=== PATIENT | male | born 1950 | race African-American/Black ===

== ENCOUNTER 2018-01-07 14:45 | Emergency (ER) | payer OTHER ==
[~2018-01-07] VITALS: Ht 188 cm; Wt 102.5 kg
[2018-01-07] MEDS ORDERED: PANTOPRAZOLE 40 MG/10 ML VIAL IV STA (15:26)
[2018-01-07] MEDS ORDERED: SODIUM CHLORIDE 0.9% 500 ML IVB ONE (15:26)
[2018-01-07] MEDS ORDERED: ONDANSETRON HCL 4 MG/2 ML VIAL IV ONE (15:30)
[2018-01-07] MEDS: MORPHINE SULFATE 8mg/ml INJ SDV IV ONE (15:30)
[2018-01-07 17:00] LABS: Basophils # (auto) 0.1 uL; Basophils % (auto) 0.5 % (0.0-2.0); Eosinophils # (auto) 0 uL; Eosinophils % (auto) 0.2 % (0.0-7.0); Hemoglobin 15.5 g/dL (13.5-17.5); Lymphocytes # (auto) 2.2 uL; Mean Corpuscular Hgb Conc. 33.8 g/dL (32.0-36.0); Mean Corpuscular Volume 91.6 fL (80.0-100.0); Monocytes # (auto) 0.9 uL; Monocytes % (auto) 8.1 % (0.0-12.0); Neutrophils # (auto) 7.4 uL; Neutrophils % (auto) 70.2 % (37.0-80.0); Nucleated Red Blood Cells % 0.1 %; Platelet Count (auto) 273 10^3/uL (140-450); Red Blood Cells 5.02 10^6/uL (4.5-5.90); Red Cell Distribution Width 15.2 % (11.8-14.3); White Blood Cell 10.5 10^3/uL (4.4-10.8)
[2018-01-07] MEDS ORDERED: MORPHINE SULFATE 10 MG/ML INJ 1ML SDV IV ONE (17:00)
[2018-01-07 17:08] LABS: Alanine Aminotransferase 35 U/L (16-61); Albumin 4.1 g/dL (3.4-5.0); Alkaline Phosphatase 103 U/L (45-117); Amylase 58 U/L (25-115); Anion Gap 9 (5-15); Aspartate Aminotransferase 22 U/L (15-37); BUN/Creatinine Ratio 12.3; Bilirubin, Total 0.7 mg/dL (0.2-1.0); Blood Urea Nitrogen 15 mg/dL (7-18); Calcium 9.7 mg/dL (8.5-10.1); Carbon Dioxide 28 mmol/L (21-32); Chloride 100 mmol/L (98-107); GFR African American 76 mL/min; GFR Non-African American 63 mL/min; Glucose 117 mg/dL (74-106); Lipase 60 U/L (73-393); Magnesium 2.6 mg/dL (1.6-2.6); Potassium 3.8 mmol/L (3.5-5.1); Sodium 137 mmol/L (136-145); Total Protein 9.4 g/dL (6.4-8.2)
[2018-01-07 21:38] LABS: Urine Bacteria MANY /hpf (None Seen); Urine Blood TRACE /uL (Negative); Urine Specific Gravity 1.015 (1.001-1.035); Urine WBC 54 /hpf (0 - 3)
[2018-01-07 23:36] VITALS: BP 126/66
== END 2018-01-07 23:53 | disposition short-term general hospital (02) ==
LOC: ER 14:45
DX: R10.13 Epigastric pain (principal); R11.10 Vomiting, unspecified; R19.7 Diarrhea, unspecified
CPT/HCPCS: 36415; 76705; 80053; 81001; 82150; 83690; 83735; 84484; 85025; 93005; 94761; 96361; 96374; 96375; 99285; C9113; J2270; J2405

== ENCOUNTER 2020-07-23 13:29 | Inpatient (IN) | payer OTHER ==
[~2020-07-23] VITALS: Ht 180.3 cm; Wt 100.4 kg
[2020-07-23] MEDS ORDERED: InsuLIN REG 1unit/0.01ml Soln (100units/ml) IV ONE (16:00)
[2020-07-23] MEDS ORDERED: SODIUM CHLORIDE 0.9% 1,000 ML IV ONE ×2 (16:00)
[2020-07-23 17:28] LABS: Basophils # (auto) 0 10 ^3/uL (0-0.2); Basophils % (auto) 0.3 % (0.0-2.0); Eosinophils # (auto) 0.1 10 ^3/uL (0-0.8); Eosinophils % (auto) 0.7 % (0.0-7.0); Hematocrit 46.3 % (41.0-53.0); Hemoglobin 15.7 g/dL (13.5-17.5); Lymphocytes # (auto) 2.1 10 ^3/uL (0.4-5.4); Lymphocytes % (auto) 19.2 % (10.0-50.0); Mean Corpuscular Hemoglobin 30.6 pg (28.0-32.0); Mean Corpuscular Hgb Conc. 33.9 g/dL (32.0-36.0); Mean Corpuscular Volume 90.3 fL (80.0-100.0); Monocytes # (auto) 0.8 10 ^3/uL (0-1.3); Monocytes % (auto) 7.3 % (0.0-12.0); Neutrophils # (auto) 7.9 10 ^3/uL (1.6-8.6); Neutrophils % (auto) 72.5 % (37.0-80.0); Platelet Count (auto) 241 10^3/uL (140-450); Red Blood Cells 5.13 10^6/uL (4.5-5.90); Red Cell Distribution Width 13.8 % (11.8-14.3); White Blood Cell 10.9 10^3/uL (4.4-10.8)
[2020-07-23 17:34] LABS: Albumin 3.8 g/dL (3.4-5.0); Anion Gap 7 (5-15); Blood Urea Nitrogen 24 mg/dL (7-18); Calcium 9.4 mg/dL (8.5-10.1); Carbon Dioxide 23 mmol/L (21-32); Chloride 101 mmol/L (98-107); Glucose 378 mg/dL (74-106); Potassium 4.6 mmol/L (3.5-5.1); Sodium 131 mmol/L (136-145)
[2020-07-23 17:41] LABS: INR 0.95 (0.9-1.15)
[2020-07-23 17:42] LABS: Alanine Aminotransferase 60 U/L (16-61); Alkaline Phosphatase 170 U/L (45-117); Aspartate Aminotransferase 43 U/L (15-37); BUN/Creatinine Ratio 16.8; Bilirubin, Total 0.5 mg/dL (0.2-1.0); GFR African American 63 mL/min; GFR Non-African American 52 mL/min; Total Protein 8.7 g/dL (6.4-8.2)
[2020-07-24] MEDS ORDERED: ONDANSETRON HCL 4 MG/2 ML VIAL IV PRN (06:45)
[2020-07-24] MEDS ORDERED: ACETAMINOPHEN 325 MG TAB PO PRN (06:45)
[2020-07-24] MEDS ORDERED: DEXTROSE (50%) 50ML SYRG IV PRN ×3 (06:45→14:15)
[2020-07-24] MEDS ORDERED: TEMAZEPAM 15 MG CAP PO PRN (06:45)
[2020-07-24] MEDS ORDERED: cloNIDine HCL 0.1 MG TAB PO PRN (06:45)
[2020-07-24] MEDS: ENOXAPARIN SOD 40 MG/0.4 ML SYRINGE SC SCH ×2 (09:34→10:41)
[2020-07-24] MEDS: FAMOTIDINE 20 MG TAB PO SCH ×2 (09:34→10:41)
[2020-07-24 09:58] LABS: Potassium 4.4 mmol/L (3.5-5.1)
[2020-07-24 10:03] LABS: BUN/Creatinine Ratio 20.1; Calcium 9.2 mg/dL (8.5-10.1)
[2020-07-24] MEDS ORDERED: InsuLIN REG 1unit/0.01ml Soln (100units/ml) SC SCH ×3 (12:00→18:00)
[2020-07-24] MEDS ORDERED: ACCU-CHEK COMFORT CURVE STRIP VI SCH ×2 (12:00→18:00)
[2020-07-24] MEDS: ACCU-CHEK COMFORT CURVE STRIP VI SCH ×3 (14:00→23:51)
[2020-07-24] MEDS: InsuLIN REG 1unit/0.01ml Soln (100units/ml) SC SCH ×3 (14:43→23:51)
--- NOTE | 2020-07-24 21:30 | NUR ---
ADMITTED PTIENT FROM THE ER, AOX4. NO DISTRESS NOTED. AFEBRILE. DENIES ANY PAIN NOW. NO SOB NOTED. ORIENTATION GIVEN. ROUTINE ADMISSION DONE. POCS DISCUSSED WITH PATIENT ND SHOWED UNDERSTANDING. BED KEPT ON LOWEST POSITION. SIDE RAILS UP. CALL LIGHT/TABLE IN REACH. KEPT COMFORTABLE.
[2020-07-24 21:40] VITALS: BP 110/68
[2020-07-24 22:35] VITALS: BP 106/67
[2020-07-25] MEDS: ACCU-CHEK COMFORT CURVE STRIP VI SCH ×5 (05:09→23:39)
[2020-07-25] MEDS: InsuLIN REG 1unit/0.01ml Soln (100units/ml) SC SCH ×5 (05:09→23:41)
[2020-07-25 05:46] VITALS: BP 99/66
[2020-07-25 07:18] LABS: Basophils # (auto) 0 10 ^3/uL (0-0.2); Basophils % (auto) 0.4 % (0.0-2.0); Eosinophils # (auto) 0.2 10 ^3/uL (0-0.8); Eosinophils % (auto) 2.4 % (0.0-7.0); Hematocrit 43.6 % (41.0-53.0); Hemoglobin 14.4 g/dL (13.5-17.5); Lymphocytes # (auto) 2.1 10 ^3/uL (0.4-5.4); Lymphocytes % (auto) 30.9 % (10.0-50.0); Mean Corpuscular Hemoglobin 30.2 pg (28.0-32.0); Mean Corpuscular Volume 91.6 fL (80.0-100.0); Monocytes # (auto) 0.7 10 ^3/uL (0-1.3); Monocytes % (auto) 10.3 % (0.0-12.0); Neutrophils # (auto) 3.7 10 ^3/uL (1.6-8.6); Nucleated Red Blood Cells % 0.2 %; Platelet Count (auto) 192 10^3/uL (140-450); Red Blood Cells 4.76 10^6/uL (4.5-5.90); White Blood Cell 6.6 10^3/uL (4.4-10.8)
[2020-07-25 07:25] LABS: Potassium 3.9 mmol/L (3.5-5.1)
[2020-07-25 07:42] LABS: BUN/Creatinine Ratio 21.9; Calcium 8.6 mg/dL (8.5-10.1)
[2020-07-25 09:00] VITALS: BP 122/64
[2020-07-25] MEDS: FAMOTIDINE 20 MG TAB PO SCH (10:38)
[2020-07-25] MEDS: ENOXAPARIN SOD 40 MG/0.4 ML SYRINGE SC SCH (10:39)
--- NOTE | 2020-07-25 13:00 | NUR ---
Discharge cancelled by Dr Saul in response to repeatedly high blood glucose. Patient educated on glucometer use, and will continue diabetic teaching. Aggressive s/s insulin therapy enacted per new order from Dr Saul.
[2020-07-25] MEDS ORDERED: DEXTROSE (50%) 50ML SYRG IV PRN (19:45)
--- NOTE | 2020-07-25 19:50 | NUR ---
Opening Shift Note Assumed care of patient, awake and alert. Patient laying in bed. No S/S of distress/SOB or pain. Safety measures maintained by keeping the bed locked in lowest position, 2 side rails up, personal items and call light within reach. Instructed on POC and to call for assist PRN, will continue to monitor for changes Q1hr and PRN.
[2020-07-25 20:00] VITALS: BP 100/64
[2020-07-26] MEDS: ACCU-CHEK COMFORT CURVE STRIP VI SCH ×2 (03:42→08:08)
[2020-07-26] MEDS: InsuLIN REG 1unit/0.01ml Soln (100units/ml) SC SCH ×2 (03:43→08:10)
[2020-07-26 05:00] VITALS: BP 101/57
--- NOTE | 2020-07-26 08:00 | NUR ---
Opening Shift Note Assumed care of patient, awake and alert. No S/S of distress/SOB or pain. Instructed on POC and to call for assist PRN, will continue to monitor for changes Q1hr and PRN.
[2020-07-26 09:00] VITALS: BP 124/47
[2020-07-26] MEDS: ENOXAPARIN SOD 40 MG/0.4 ML SYRINGE SC SCH (09:51)
[2020-07-26] MEDS: FAMOTIDINE 20 MG TAB PO SCH (09:52)
[2020-07-26 11:58] VITALS: BP 124/47
--- NOTE | 2020-07-26 12:19 | NUR ---
Discharge instructions given as ordered. Encourage to follow up with PMD at [facility] in 1-2 weeks as instructed. All questions and concerns addressed. Patient verbalized understanding. Medication reconciliation form completed and copy given to patient. IV removed with catheter intact, pressure dressing applied. Patient ambulated to vehicle with all personal belongings, accompanied by staff and family member. No distress noted at time of departure.
== END 2020-07-26 15:52 | disposition home or self-care (01) | DRG 638 ==
LOC: EDBD 13:29 → ER 13:29 → OVERFLOW 13:30 → CENTRAL 07-24 21:10
PROVIDERS: ADMIT Nurse Practitioner; ATTEND Family Medicine
DX: E11.65 Type 2 diabetes mellitus with hyperglycemia (principal); E87.1 Hypo-osmolality and hyponatremia; E66.9 Obesity, unspecified; I10 Essential (primary) hypertension; F17.210 Nicotine dependence, cigarettes, uncomplicated; Z79.84 Long term (current) use of oral hypoglycemic drugs; Z20.828 Contact with and (suspected) exposure to other viral communicable diseases
CPT/HCPCS: 36415; 71045; 80048; 80053; 82010; 82962; 83036; 84484; 85025; 85610; 85730; 87804; 93005; 96361; 96372; 96374; G0378; J1815

== ENCOUNTER 2021-09-04 10:28 | Emergency (ER) | payer OTHER ==
[~2021-09-04] VITALS: Ht 182.9 cm; Wt 83.9 kg
[2021-09-04 11:38] LABS: Basophils # (auto) 0.1 10 ^3/uL (0-0.2); Basophils % (auto) 0.5 % (0.0-2.0); Eosinophils # (auto) 0 10 ^3/uL (0-0.8); Eosinophils % (auto) 0.2 % (0.0-7.0); Hematocrit 46.3 % (41.0-53.0); Hemoglobin 15.5 g/dL (13.5-17.5); Lymphocytes # (auto) 1.8 10 ^3/uL (0.4-5.4); Lymphocytes % (auto) 18.7 % (10.0-50.0); Mean Corpuscular Hemoglobin 30.7 pg (28.0-32.0); Mean Corpuscular Hgb Conc. 33.5 g/dL (32.0-36.0); Mean Corpuscular Volume 91.8 fL (80.0-100.0); Monocytes # (auto) 0.6 10 ^3/uL (0-1.3); Monocytes % (auto) 6.1 % (0.0-12.0); Neutrophils # (auto) 7.2 10 ^3/uL (1.6-8.6); Neutrophils % (auto) 74.5 % (37.0-80.0); Nucleated Red Blood Cells % 0.1 %; Red Blood Cells 5.04 10^6/uL (4.5-5.90); Red Cell Distribution Width 14.8 % (11.8-14.3); White Blood Cell 9.7 10^3/uL (4.4-10.8)
[2021-09-04 11:58] LABS: Albumin 4.2 g/dL (3.4-5.0); Calcium 9.8 mg/dL (8.5-10.1); Potassium 3.9 mmol/L (3.5-5.1)
[2021-09-04] MEDS ORDERED: ONDANSETRON HCL 4 MG/2 ML VIAL IV ONE (12:00)
[2021-09-04] MEDS ORDERED: SODIUM CHLORIDE 0.9% 1,000 ML IV ONE (12:00)
[2021-09-04 12:05] LABS: BUN/Creatinine Ratio 9.6; Bilirubin, Total 0.8 mg/dL (0.2-1.0); Total Protein 8.6 g/dL (6.4-8.2)
[2021-09-04 12:09] LABS: Urine Bacteria NONE SEEN /hpf (None Seen); Urine Blood TRACE /uL (Negative); Urine Hyaline Cast FEW /lpf (0 - 2); Urine Mucus FEW (None Seen); Urine Specific Gravity 1.014 (1.001-1.035); Urine WBC 3 /hpf (0 - 3)
[2021-09-04] MEDS ORDERED: fentaNYL CITRATE 100 MCG/2 ML VL IV ONE (13:45)
[2021-09-04] MEDS ORDERED: HYDROcodone-ACET 5/325MG TAB PO ONE (16:00)
[2021-09-05] MEDS ORDERED: fentaNYL CITRATE 100 MCG/2 ML VL IM ONE (00:45)
[2021-09-05 01:17] VITALS: BP 114/67
[2021-09-05] MEDS ORDERED: HYDROcodone-ACET 5/325MG TAB PO ONE (01:30)
== END 2021-09-05 01:35 | disposition short-term general hospital (02) ==
LOC: ER 10:28 → EDUNIT# 10:28 → EDBD 10:28 → ER 09-05 01:35
DX: N28.89 Other specified disorders of kidney and ureter (principal); E11.9 Type 2 diabetes mellitus without complications; I10 Essential (primary) hypertension; F17.210 Nicotine dependence, cigarettes, uncomplicated; Z20.822 Contact with and (suspected) exposure to COVID-19
CPT/HCPCS: 36415; 74176; 76705; 80053; 81001; 83690; 84484; 85025; 87426; 96361; 96372; 96374; 96375; 99285; J2405; J3010; J7030; 93005